=== PATIENT | male | born 1960 ===

== ENCOUNTER → 2021-03-28 14:58 | Outpatient (BNVA) | payer BC, SELFPAY | PROVIDERS: Family Provider Family Medicine; PCP Family Medicine; Visit Provider Surgery | DX: Z20.822 Contact with and (suspected) exposure to COVID-19 (principal) | CPT/HCPCS: 87635 ==

== ENCOUNTER 2021-04-04 07:40 | Day surgery (SDC) | payer BC, SELFPAY ==
[2021-03-29 15:43] VITALS: BMI 30.2
[2021-04-04 08:11] VITALS: BP 184/94; PULSE 74; RESP 18; TEMP 35.9; O2SAT 98
--- NOTE | 2021-04-04 08:11 | ANES.PREANE2 ---
Pre-Anesthetic Assessment Pre-Anesthetic Assessment: Height/Weight: Height 1.57 m Weight 74.843 kg Preop Diagnosis: screening colonoscopy Proposed Procedure: Operation Date: 04/04/21 09:00 Proposed Procedures p Colonoscopy 06774 Z12.11(Not Applicable) - Berhane Singh MD Was Beta Jannette taken within 24 hours: N/A Was Clonidine taken within 24 hours: N/A Social: Social History: No alcohol and No tobacco Exam: Pre-Anes Outpt Exam: alert, oriented x 3, clear to auscultation bilaterally and regular rate & rhythm Airway: Submandibular: WNL Cervical ROM: WNL MP: 2 Dentition: Chipped History/ROS: No significant history except as noted Anesthetic Plan: ASA status: 1 Anesthesia: MAC Risk of > 500 ml blood loss (7ml/kg in children): No PFSH Anesthesia PFSH: Medical History (Updated 03/22/21 @ 09:18 by Berhane Singh MD) Gastric ulcer Surgical History (Updated 03/22/21 @ 09:18 by Berhane Singh MD) H/O esophagogastroduodenoscopy History of umbilical hernia repair Social History Smoking and tobacco status: never smoked Data Anesthesia Cardiac Studies: No Data to Display
[2021-04-04] MEDS: sodium chloride 0.9% 1,000 ML 30 ML IV (08:25)
--- NOTE | 2021-04-04 08:58 | W.PM.OPSUD ---
Surgery/Procedure H&P Update DATE OF PROCEDURE: April 04, 2021 DATE H&P PERFORMED: 03/22/21 H&P UPDATE INFORMATION: I have reviewed H&P completed within last 30 days, I have examined patient prior to procedure and No changes to prior documentation PREOP DIAGNOSIS: screening colonoscopy PLANNED PROCEDURE: Operation Date: 04/04/21 09:00 Proposed Procedures p Colonoscopy 28351 Z12.11(Not Applicable) - Berhane Singh MD
[2021-04-04 09:16] VITALS: BP 89/68; PULSE 68; RESP 16; TEMP 36.1; O2SAT 98
[2021-04-04 09:30] VITALS: BP 124/88; PULSE 75; RESP 18; O2SAT 98
--- NOTE | 2021-04-04 16:20 | ANE.PACU2 ---
Inpatient post-anesthesia follow up: Airway intact: Yes Vital signs: Temperature 97.0 F Pulse Rate 75 Respiratory Rate 18 Blood Pressure 124/88 Pulse Oximetry 98 Oxygen Delivery Me thod Oxygen Flow Rate Fraction of Inspir ed Oxygen Hydration adequate: Yes Nausea and vomiting: No Pain level: 1 Mental status: Baseline
== END 2021-04-04 10:02 | disposition home or self-care (01) ==
PROVIDERS: PCP Family Medicine; Visit Provider Surgery
PROC: 0DJD8ZZ Inspection of Lower Intestinal Tract, Via Natural or Artificial Opening Endoscopic (ICD-10-PCS; CPT 45378; principal; 2021-04-04 09:00)
DX: Z12.11 Encounter for screening for malignant neoplasm of colon (principal); K57.30 Diverticulosis of large intestine without perforation or abscess without bleeding; K64.8 Other hemorrhoids; Z87.11 Personal history of peptic ulcer disease
CPT/HCPCS: 45378; 96360; 96361; J2704; J7030

== ENCOUNTER → 2024-01-11 15:34 | Outpatient (BNVA) | payer OTHER, SELFPAY | PROVIDERS: PCP Family Medicine; Visit Provider Family Medicine | DX: R73.9 Hyperglycemia, unspecified (principal); R73.03 Prediabetes | CPT/HCPCS: 80053; 83036; 85025 ==

== ENCOUNTER → 2024-05-30 16:02 | Outpatient (BNVA) | payer OTHER, SELFPAY | PROVIDERS: PCP Family Medicine; Visit Provider Family Medicine | DX: E11.9 Type 2 diabetes mellitus without complications (principal) | CPT/HCPCS: 83036 ==

== ENCOUNTER → 2024-11-08 10:08 | Outpatient (BNVA) | payer BC, SELFPAY | PROVIDERS: PCP Family Medicine; Visit Provider Family Medicine | DX: E11.9 Type 2 diabetes mellitus without complications (principal) | CPT/HCPCS: 83036 ==